=== PATIENT | male | born 1945 | race Caucasian/White ===

== ENCOUNTER 2020-08-10 10:34 | Inpatient (IN) ==
[2020-08-10] MEDS ORDERED: Dexamethasone 4 MG/ML VIAL IVP ONE (11:23)
[2020-08-10 11:30] LABS: Basophils % 0.1 %; Hematocrit 45.3 % (37.5-50.1); Hemoglobin 15.7 g/dL (12.9-16.9); Immature Granulocytes % 0.9 % (0-4); Lymphocytes # 0.4 K/mcL (0.6-4.6); Lymphocytes % 3.2 %; Mean Corpuscular HGB Conc 34.7 g/dL (31.6-35.5); Mean Corpuscular Hemoglobin 30.5 pg (28.0-33.3); Mean Corpuscular Volume 88.1 fL (83.0-100.0); Mean Platelet Volume 10.1 fL (9.4-12.4); Monocytes # 0.6 K/mcL (0.0-1.3); Monocytes % 4.3 %; Neutrophils # 12.7 K/mcL (1.6-8.9); Platelet Count 170 K/mcL (140-400); Red Blood Count 5.14 M/mcL (4.19-5.50); Red Cell Distribution Width 11.9 % (11.5-14.5); Segmented Neutrophils % 91.5 %; White Blood Count 13.9 K/mcL (4.3-11.1)
[2020-08-10 11:45] LABS: INR 1.2; Prothrombin Time 13.8 Seconds (9.4-12.1)
[2020-08-10 11:49] LABS: BUN/Creatinine Ratio 32 (6-26); Blood Urea Nitrogen 28 mg/dL (8-23); Calcium 8.9 mg/dL (8.6-10.3); Carbon Dioxide 25 mEq/L (23-29); Chloride 97 mEq/L (98-107); Glucose 120 mg/dL (70-105); Osmolality,Calculated 279 (280-300); Potassium 3.7 mEq/L (3.5-5.1); Sodium 131 mEq/L (136-145); Troponin I 0.03 ng/mL (< 0.04); eGFR For African Americans > 60 (> 60); eGFR For Non-African Americans > 60 (> 60)
[2020-08-10 11:55] LABS: Activated Partial Thrombo Time 20.6 Seconds (26.0-36.0)
[2020-08-10] MEDS ORDERED: Isovue-370 500 ML BOTTLE IVP ONE (11:58)
[2020-08-10] MEDS ORDERED: Prochlorperazine 10 MG/2 ML VIAL IVP ONE (12:06)
[2020-08-10] MEDS ORDERED: cefTRIAXone 1,000 MG in Water for inj. (sterile) 10 ML IVP ONE (12:57)
[2020-08-10] MEDS ORDERED: Naloxone 0.4 MG/ML INJ IVP PRN (13:44)
[2020-08-10] MEDS ORDERED: Ipratropium 1 PUFF INHALER IH PRN (14:02)
[2020-08-10 15:32] LABS: Bilirubin,Urine Negative (Negative); Blood,Urine Trace (Negative); Clarity,Urine Clear (Clear); Color,Urine Yellow (Yellow); Glucose,Urine (UA) Normal (Normal); Ketones,Urine Negative (Negative); Leukocyte Esterase,Urine Negative (Negative); Mucus,Urine Few per lpf (None-Few); Nitrite,Urine Negative (Negative); Protein,Urine 50 mg/dL (Neg-Trace); RBC,Urine 0-3 per hpf (0-3); Specific Gravity,Urine > 1.030 (1.010-1.025); Squamous Epithelial Cell,Urine Few per hpf (None-Few); Urobilinogen,Urine Normal (Normal); WBC,Urine 0-3 per hpf (0-3)
[2020-08-10] MEDS ORDERED: *HR* OxyCODONE/APAP 5/325 TABLET PO PRN (16:10)
[2020-08-10] MEDS ORDERED: traZODone 50 MG TABLET PO PRN (20:13)
[2020-08-10] MEDS ORDERED: polyethylene glycoL 3350 17 GM POWD.PACK PO PRN (20:13)
[2020-08-10] MEDS ORDERED: *HR* OxyCODONE/APAP 10/325 TABLET PO PRN (21:53)
[2020-08-10] MEDS: Triamcinolone Acet 0.1% CRM 15 GM TUBE TP SCH (22:03)
[2020-08-11 01:26] LABS: Basophils % 0.1 %; Hematocrit 45.2 % (37.5-50.1); Hemoglobin 15.1 g/dL (12.9-16.9); Immature Granulocytes % 0.9 % (0-4); Lymphocytes # 0.4 K/mcL (0.6-4.6); Lymphocytes % 2.9 %; Mean Corpuscular HGB Conc 33.4 g/dL (31.6-35.5); Mean Corpuscular Hemoglobin 30.6 pg (28.0-33.3); Mean Corpuscular Volume 91.7 fL (83.0-100.0); Mean Platelet Volume 9.9 fL (9.4-12.4); Monocytes # 0.4 K/mcL (0.0-1.3); Monocytes % 3.1 %; Neutrophils # 13.2 K/mcL (1.6-8.9); Platelet Count 162 K/mcL (140-400); Red Blood Count 4.93 M/mcL (4.19-5.50); Red Cell Distribution Width 12.1 % (11.5-14.5); White Blood Count 14.2 K/mcL (4.3-11.1)
[2020-08-11] MEDS: *HR* OxyCODONE/APAP 10/325 TABLET PO PRN ×4 (01:31→22:30)
[2020-08-11 01:42] LABS: BUN/Creatinine Ratio 34 (6-26); Blood Urea Nitrogen 34 mg/dL (8-23); Calcium 8.9 mg/dL (8.6-10.3); Carbon Dioxide 30 mEq/L (23-29); Chloride 95 mEq/L (98-107); Glucose 163 mg/dL (70-105); Osmolality,Calculated 285 (280-300); Potassium 4.6 mEq/L (3.5-5.1); Sodium 132 mEq/L (136-145); eGFR For African Americans > 60 (> 60); eGFR For Non-African Americans > 60 (> 60)
[2020-08-11] MEDS: *HR* Enoxaparin 40 MG/0.4 ML SYRINGE SQ SCH (06:56)
[2020-08-11] MEDS: Dexamethasone 4 MG/ML VIAL IVP SCH (08:19)
[2020-08-11] MEDS: Aspirin Enteric Coated 81 MG Tablet PO SCH (08:19)
[2020-08-11] MEDS: lisinopriL 20 MG TABLET PO SCH (08:20)
[2020-08-11] MEDS: DilTIAZem CD (24hr) 180 MG CAP.ER.24H PO SCH (08:20)
[2020-08-11] MEDS: Triamcinolone Acet 0.1% CRM 15 GM TUBE TP SCH ×2 (08:24→21:09)
[2020-08-11] MEDS ORDERED: Cyanocobalamin (B-12) 1,000 MCG TABLET PO SCH (09:00)
[2020-08-11] MEDS ORDERED: cefTRIAXone 2,000 MG in Water for inj. (sterile) 20 ML IVP SCH (14:00)
[2020-08-11] MEDS: Acetaminophen 325 MG TABLET PO PRN (23:42)
[2020-08-12] MEDS: *HR* OxyCODONE Immed Rel 5 MG TABLET PO PRN ×3 (04:35→18:46)
[2020-08-12] MEDS: *HR* Enoxaparin 40 MG/0.4 ML SYRINGE SQ SCH (05:27)
[2020-08-12 08:21] LABS: Basophils % 0.1 %; Hematocrit 42.5 % (37.5-50.1); Hemoglobin 14.9 g/dL (12.9-16.9); Immature Granulocytes % 0.7 % (0-4); Lymphocytes # 0.4 K/mcL (0.6-4.6); Lymphocytes % 2.9 %; Mean Corpuscular HGB Conc 35.1 g/dL (31.6-35.5); Mean Corpuscular Hemoglobin 31.6 pg (28.0-33.3); Mean Corpuscular Volume 90.2 fL (83.0-100.0); Monocytes # 0.4 K/mcL (0.0-1.3); Monocytes % 2.7 %; Neutrophils # 14.1 K/mcL (1.6-8.9); Platelet Count 188 K/mcL (140-400); Red Blood Count 4.71 M/mcL (4.19-5.50); Segmented Neutrophils % 93.6 %
[2020-08-12] MEDS: DilTIAZem CD (24hr) 180 MG CAP.ER.24H PO SCH (08:45)
[2020-08-12] MEDS: Aspirin Enteric Coated 81 MG Tablet PO SCH (08:46)
[2020-08-12] MEDS: Acetaminophen 325 MG TABLET PO PRN ×2 (08:46→23:58)
[2020-08-12] MEDS: lisinopriL 20 MG TABLET PO SCH (08:46)
[2020-08-12] MEDS: Dexamethasone 4 MG/ML VIAL IVP SCH (08:48)
[2020-08-12] MEDS: Triamcinolone Acet 0.1% CRM 15 GM TUBE TP SCH ×2 (08:49→19:09)
[2020-08-12] MEDS: Cyanocobalamin (B-12) 1,000 MCG TABLET PO SCH (08:56)
[2020-08-12 09:05] LABS: INR 1.2
[2020-08-12 09:53] LABS: BUN/Creatinine Ratio 37 (6-26); Blood Urea Nitrogen 34 mg/dL (8-23); C-Reactive Protein 172 mg/L (Less than 10); Calcium 8.9 mg/dL (8.6-10.3); Carbon Dioxide 31 mEq/L (23-29); Chloride 94 mEq/L (98-107); Glucose 144 mg/dL (70-105); Osmolality,Calculated 282 (280-300); Potassium 4.5 mEq/L (3.5-5.1); Sodium 131 mEq/L (136-145); eGFR For African Americans > 60 (> 60); eGFR For Non-African Americans > 60 (> 60)
[2020-08-12] MEDS ORDERED: Benzonatate 100 MG CAPSULE PO PRN (10:09)
[2020-08-12] MEDS: levoFLOXacin 750 MG/150 ML 750 MG/150 ML BAG IVPB SCH (12:23)
[2020-08-12] MEDS: Furosemide 20 MG/2 ML VIAL IVP SCH (12:23)
[2020-08-12] MEDS: Ipratropium 1 PUFF INHALER IH SCH ×4 (12:50→23:06)
[2020-08-12 18:41] LABS: Adenovirus Not Detected (Not Detect); Bordetella Pertussis Not Detected (Not Detect); Chlamydophila pneumoniae Not Detected (Not Detect); Coronavirus 229E Not Detected (Not Detect); Coronavirus HKU1 Not Detected (Not Detect); Coronavirus NL63 Not Detected (Not Detect); Coronavirus OC43 Not Detected (Not Detect); Human Metapneumovirus Not Detected (Not Detect); Human Rhinovirus/Enterovirus Not Detected (Not Detect); Influenza A Subtype 2009 H1 Not Detected (Not Detect); Influenza B Not Detected (Not Detect); Mycoplasma pneumoniae Not Detected (Not Detect); Parainfluenza Virus 1 Not Detected (Not Detect); Parainfluenza Virus 2 Not Detected (Not Detect); Parainfluenza Virus 3 Not Detected (Not Detect); Parainfluenza Virus 4 Not Detected (Not Detect); Respiratory Syncytial Virus Not Detected (Not Detect)
[2020-08-13] MEDS: *HR* OxyCODONE Immed Rel 5 MG TABLET PO PRN ×3 (02:35→20:49)
[2020-08-13] MEDS: Ipratropium 1 PUFF INHALER IH SCH ×6 (04:06→23:54)
[2020-08-13] MEDS: *HR* Enoxaparin 40 MG/0.4 ML SYRINGE SQ SCH (04:53)
[2020-08-13 05:25] LABS: Basophils % 0.1 %; Hematocrit 39.2 % (37.5-50.1); Hemoglobin 13.5 g/dL (12.9-16.9); Immature Granulocytes % 0.7 % (0-4); Lymphocytes # 0.5 K/mcL (0.6-4.6); Lymphocytes % 3.2 %; Mean Corpuscular HGB Conc 34.4 g/dL (31.6-35.5); Mean Corpuscular Hemoglobin 30.5 pg (28.0-33.3); Mean Corpuscular Volume 88.7 fL (83.0-100.0); Monocytes # 0.5 K/mcL (0.0-1.3); Monocytes % 3.1 %; Neutrophils # 13.4 K/mcL (1.6-8.9); Platelet Count 185 K/mcL (140-400); Red Blood Count 4.42 M/mcL (4.19-5.50); Red Cell Distribution Width 12.2 % (11.5-14.5); Segmented Neutrophils % 92.9 %; White Blood Count 14.4 K/mcL (4.3-11.1)
[2020-08-13 05:42] LABS: BUN/Creatinine Ratio 42 (6-26); Blood Urea Nitrogen 35 mg/dL (8-23); Calcium 8.8 mg/dL (8.6-10.3); Carbon Dioxide 27 mEq/L (23-29); Chloride 95 mEq/L (98-107); Glucose 176 mg/dL (70-105); Osmolality,Calculated 278 (280-300); Potassium 4.5 mEq/L (3.5-5.1); Sodium 128 mEq/L (136-145); eGFR For African Americans > 60 (> 60); eGFR For Non-African Americans > 60 (> 60)
[2020-08-13] MEDS: Dexamethasone 4 MG/ML VIAL IVP SCH (09:36)
[2020-08-13] MEDS: DilTIAZem CD (24hr) 180 MG CAP.ER.24H PO SCH (09:36)
[2020-08-13] MEDS: Aspirin Enteric Coated 81 MG Tablet PO SCH (09:36)
[2020-08-13] MEDS: Furosemide 20 MG/2 ML VIAL IVP SCH (09:37)
[2020-08-13] MEDS: Triamcinolone Acet 0.1% CRM 15 GM TUBE TP SCH ×2 (09:37→21:13)
[2020-08-13] MEDS: levoFLOXacin 750 MG/150 ML 750 MG/150 ML BAG IVPB SCH (09:37)
[2020-08-13] MEDS: lisinopriL 20 MG TABLET PO SCH (09:38)
[2020-08-13] MEDS: Cyanocobalamin (B-12) 1,000 MCG TABLET PO SCH (09:38)
[2020-08-13] MEDS ORDERED: Dexamethasone 4 MG/ML VIAL IVP ONE (13:49)
[2020-08-14 02:48] LABS: Basophils % 0.1 %; Hemoglobin 13.3 g/dL (12.9-16.9); Lymphocytes # 0.3 K/mcL (0.6-4.6); Lymphocytes % 2.3 %; Mean Corpuscular HGB Conc 34.1 g/dL (31.6-35.5); Mean Corpuscular Hemoglobin 30.6 pg (28.0-33.3); Mean Corpuscular Volume 89.7 fL (83.0-100.0); Mean Platelet Volume 9.8 fL (9.4-12.4); Monocytes # 0.3 K/mcL (0.0-1.3); Monocytes % 2.3 %; Neutrophils # 13.3 K/mcL (1.6-8.9); Platelet Count 212 K/mcL (140-400); Red Blood Count 4.35 M/mcL (4.19-5.50); Red Cell Distribution Width 12.3 % (11.5-14.5); Segmented Neutrophils % 94.3 %; White Blood Count 14.1 K/mcL (4.3-11.1)
[2020-08-14] MEDS: *HR* OxyCODONE Immed Rel 5 MG TABLET PO PRN ×3 (02:51→18:35)
[2020-08-14 03:08] LABS: BUN/Creatinine Ratio 42 (6-26); Blood Urea Nitrogen 37 mg/dL (8-23); Carbon Dioxide 29 mEq/L (23-29); Chloride 95 mEq/L (98-107); Glucose 181 mg/dL (70-105); Osmolality,Calculated 291 (280-300); Potassium 4.4 mEq/L (3.5-5.1); Sodium 134 mEq/L (136-145); eGFR For African Americans > 60 (> 60); eGFR For Non-African Americans > 60 (> 60)
[2020-08-14] MEDS: Ipratropium 1 PUFF INHALER IH SCH ×5 (04:08→20:10)
[2020-08-14] MEDS: *HR* Enoxaparin 40 MG/0.4 ML SYRINGE SQ SCH (05:15)
[2020-08-14] MEDS ORDERED: Dexamethasone 4 MG/ML VIAL IVP SCH (09:00)
[2020-08-14] MEDS: Furosemide 20 MG/2 ML VIAL IVP SCH (09:51)
[2020-08-14] MEDS: Cyanocobalamin (B-12) 1,000 MCG TABLET PO SCH (09:51)
[2020-08-14] MEDS: Aspirin Enteric Coated 81 MG Tablet PO SCH (09:51)
[2020-08-14] MEDS: lisinopriL 20 MG TABLET PO SCH (09:52)
[2020-08-14] MEDS: DilTIAZem CD (24hr) 180 MG CAP.ER.24H PO SCH (09:52)
[2020-08-14] MEDS: levoFLOXacin 750 MG/150 ML 750 MG/150 ML BAG IVPB SCH (09:53)
[2020-08-14] MEDS: Triamcinolone Acet 0.1% CRM 15 GM TUBE TP SCH (09:54)
[2020-08-14] MEDS ORDERED: Sucralfate 1 GM TABLET PO PRN (16:16)
[2020-08-14] MEDS: Pantoprazole 40 MG VIAL IVP SCH (17:08)
[2020-08-14] MEDS ORDERED: *HR* LORazepam 2 MG/ML VIAL IVP ONE (18:55)
[2020-08-14] MEDS ORDERED: Isovue-370 500 ML BOTTLE IVP ONE (18:58)
[2020-08-14] MEDS ORDERED: Furosemide 20 MG/2 ML VIAL IVP ONE (19:12)
[2020-08-14] MEDS ORDERED: Haloperidol Lactate 5 MG/ML VIAL IM ONE (23:20)
[2020-08-14] MEDS: Dexmedetomidine HCl 400 MCG/100 ML MLS IVC SCH (23:51)
[2020-08-15] MEDS: Ipratropium 1 PUFF INHALER IH SCH ×8 (00:23→23:10)
[2020-08-15] MEDS: Triamcinolone Acet 0.1% CRM 15 GM TUBE TP SCH ×4 (00:35→21:57)
[2020-08-15 02:50] LABS: Basophils % 0.2 %; Hematocrit 35.9 % (37.5-50.1); Hemoglobin 12.4 g/dL (12.9-16.9); Lymphocytes # 0.3 K/mcL (0.6-4.6); Lymphocytes % 1.6 %; Mean Corpuscular HGB Conc 34.5 g/dL (31.6-35.5); Mean Corpuscular Hemoglobin 31.2 pg (28.0-33.3); Mean Corpuscular Volume 90.4 fL (83.0-100.0); Monocytes # 0.5 K/mcL (0.0-1.3); Monocytes % 2.8 %; Neutrophils # 16.2 K/mcL (1.6-8.9); Platelet Count 231 K/mcL (140-400); Red Blood Count 3.97 M/mcL (4.19-5.50); Red Cell Distribution Width 12.4 % (11.5-14.5); Segmented Neutrophils % 94.4 %; White Blood Count 17.2 K/mcL (4.3-11.1)
[2020-08-15 03:08] LABS: BUN/Creatinine Ratio 40 (6-26); Blood Urea Nitrogen 41 mg/dL (8-23); Calcium 8.8 mg/dL (8.6-10.3); Carbon Dioxide 25 mEq/L (23-29); Chloride 97 mEq/L (98-107); Glucose 190 mg/dL (70-105); Osmolality,Calculated 289 (280-300); Sodium 132 mEq/L (136-145); eGFR For African Americans > 60 (> 60); eGFR For Non-African Americans > 60 (> 60)
[2020-08-15] MEDS: Dexmedetomidine HCl 400 MCG/100 ML MLS IVC SCH ×2 (05:08→18:28)
[2020-08-15] MEDS: *HR* Enoxaparin 40 MG/0.4 ML SYRINGE SQ SCH (06:45)
[2020-08-15] MEDS ORDERED: Furosemide 20 MG/2 ML VIAL IVP SCH (09:00)
[2020-08-15] MEDS ORDERED: DEXAMETHASONE 6 MG PO SCH (09:00)
[2020-08-15] MEDS: Cyanocobalamin (B-12) 1,000 MCG TABLET PO SCH (09:49)
[2020-08-15] MEDS: Dexamethasone Sodium Phos/PF 10 MG/ML VIAL IVP SCH (09:49)
[2020-08-15] MEDS: lisinopriL 20 MG TABLET PO SCH (09:49)
[2020-08-15] MEDS: DilTIAZem CD (24hr) 180 MG CAP.ER.24H PO SCH (09:49)
[2020-08-15] MEDS: Aspirin Enteric Coated 81 MG Tablet PO SCH (09:49)
[2020-08-15] MEDS: Pantoprazole 40 MG VIAL IVP SCH (09:49)
[2020-08-15] MEDS: Furosemide 40 MG/4 ML VIAL IVP SCH (09:50)
[2020-08-15] MEDS: levoFLOXacin 750 MG/150 ML 750 MG/150 ML BAG IVPB SCH (09:50)
[2020-08-15] MEDS: *HR* OxyCODONE Immed Rel 5 MG TABLET PO PRN ×2 (16:16→23:57)
[2020-08-16] MEDS: Ipratropium 1 PUFF INHALER IH SCH ×5 (04:02→20:05)
[2020-08-16] MEDS: *HR* Enoxaparin 40 MG/0.4 ML SYRINGE SQ SCH (05:52)
[2020-08-16] MEDS: Furosemide 40 MG/4 ML VIAL IVP SCH (08:38)
[2020-08-16] MEDS: levoFLOXacin 750 MG/150 ML 750 MG/150 ML BAG IVPB SCH (08:39)
[2020-08-16] MEDS: DilTIAZem CD (24hr) 180 MG CAP.ER.24H PO SCH (08:40)
[2020-08-16] MEDS: Dexamethasone Sodium Phos/PF 10 MG/ML VIAL IVP SCH (08:40)
[2020-08-16] MEDS: Aspirin Enteric Coated 81 MG Tablet PO SCH (08:40)
[2020-08-16] MEDS: Cyanocobalamin (B-12) 1,000 MCG TABLET PO SCH (08:40)
[2020-08-16] MEDS: Pantoprazole 40 MG VIAL IVP SCH (08:41)
[2020-08-16] MEDS: Triamcinolone Acet 0.1% CRM 15 GM TUBE TP SCH (08:41)
[2020-08-16 08:59] LABS: Basophils % 0.1 %; Hematocrit 37.3 % (37.5-50.1); Hemoglobin 12.7 g/dL (12.9-16.9); Immature Granulocytes % 0.8 % (0-4); Lymphocytes # 0.7 K/mcL (0.6-4.6); Lymphocytes % 3.8 %; Mean Corpuscular Hemoglobin 31.1 pg (28.0-33.3); Mean Corpuscular Volume 91.2 fL (83.0-100.0); Mean Platelet Volume 9.8 fL (9.4-12.4); Monocytes # 0.3 K/mcL (0.0-1.3); Monocytes % 1.5 %; Neutrophils # 15.8 K/mcL (1.6-8.9); Platelet Count 237 K/mcL (140-400); Red Blood Count 4.09 M/mcL (4.19-5.50); Red Cell Distribution Width 12.2 % (11.5-14.5); Segmented Neutrophils % 93.8 %; White Blood Count 16.9 K/mcL (4.3-11.1)
[2020-08-16 09:19] LABS: BUN/Creatinine Ratio 51 (6-26); Blood Urea Nitrogen 50 mg/dL (8-23); Calcium 8.5 mg/dL (8.6-10.3); Carbon Dioxide 27 mEq/L (23-29); Chloride 98 mEq/L (98-107); Glucose 159 mg/dL (70-105); Osmolality,Calculated 291 (280-300); Potassium 3.9 mEq/L (3.5-5.1); Sodium 132 mEq/L (136-145); eGFR For African Americans > 60 (> 60); eGFR For Non-African Americans > 60 (> 60)
[2020-08-16] MEDS: lisinopriL 20 MG TABLET PO SCH (10:30)
[2020-08-16] MEDS: *HR* OxyCODONE Immed Rel 5 MG TABLET PO PRN (14:27)
[2020-08-16] MEDS: Dexmedetomidine HCl 400 MCG/100 ML MLS IVC SCH (17:04)
[2020-08-16] MEDS ORDERED: polyethylene glycoL 3350 17 GM POWD.PACK PO PRN (23:53)
[2020-08-16] MEDS ORDERED: *HR* OxyCODONE Immed Rel 5 MG TABLET PO PRN (23:53)
[2020-08-16] MEDS ORDERED: Benzonatate 100 MG CAPSULE PO PRN (23:53)
[2020-08-16] MEDS ORDERED: Naloxone 0.4 MG/ML INJ IVP PRN (23:53)
[2020-08-16] MEDS ORDERED: Acetaminophen 325 MG TABLET PO PRN (23:53)
[2020-08-16] MEDS ORDERED: Sucralfate 1 GM TABLET PO PRN (23:53)
[2020-08-17] MEDS: Ipratropium 1 PUFF INHALER IH SCH ×7 (00:02→23:54)
[2020-08-17] MEDS: *HR* Enoxaparin 40 MG/0.4 ML SYRINGE SQ SCH (06:11)
[2020-08-17] MEDS: Pantoprazole 40 MG VIAL IVP SCH (06:12)
[2020-08-17] MEDS: Dexmedetomidine HCl 400 MCG/100 ML MLS IVC SCH ×2 (07:27→07:28)
[2020-08-17] MEDS: Triamcinolone Acet 0.1% CRM 15 GM TUBE TP SCH ×2 (07:28→09:21)
[2020-08-17 08:39] LABS: Basophils % 0.1 %; Hematocrit 38.7 % (37.5-50.1); Hemoglobin 13.1 g/dL (12.9-16.9); Immature Granulocytes % 0.6 % (0-4); Lymphocytes # 0.3 K/mcL (0.6-4.6); Lymphocytes % 1.9 %; Mean Corpuscular HGB Conc 33.9 g/dL (31.6-35.5); Mean Corpuscular Hemoglobin 30.8 pg (28.0-33.3); Mean Corpuscular Volume 90.8 fL (83.0-100.0); Mean Platelet Volume 9.5 fL (9.4-12.4); Monocytes # 0.2 K/mcL (0.0-1.3); Monocytes % 1.4 %; Neutrophils # 15.5 K/mcL (1.6-8.9); Platelet Count 227 K/mcL (140-400); Red Blood Count 4.26 M/mcL (4.19-5.50); Red Cell Distribution Width 12.1 % (11.5-14.5); White Blood Count 16.2 K/mcL (4.3-11.1)
[2020-08-17 08:52] LABS: BUN/Creatinine Ratio 49 (6-26); Blood Urea Nitrogen 42 mg/dL (8-23); Calcium 8.4 mg/dL (8.6-10.3); Carbon Dioxide 29 mEq/L (23-29); Chloride 99 mEq/L (98-107); Glucose 123 mg/dL (70-105); Osmolality,Calculated 292 (280-300); Potassium 3.9 mEq/L (3.5-5.1); Sodium 135 mEq/L (136-145); eGFR For African Americans > 60 (> 60); eGFR For Non-African Americans > 60 (> 60)
[2020-08-17] MEDS: lisinopriL 20 MG TABLET PO SCH (09:19)
[2020-08-17] MEDS: Cyanocobalamin (B-12) 1,000 MCG TABLET PO SCH (09:19)
[2020-08-17] MEDS: Furosemide 40 MG/4 ML VIAL IVP SCH (09:19)
[2020-08-17] MEDS: DilTIAZem CD (24hr) 180 MG CAP.ER.24H PO SCH (09:19)
[2020-08-17] MEDS: Dexamethasone Sodium Phos/PF 10 MG/ML VIAL IVP SCH (09:19)
[2020-08-17] MEDS: Aspirin Enteric Coated 81 MG Tablet PO SCH (09:19)
[2020-08-17] MEDS: levoFLOXacin 750 MG/150 ML 750 MG/150 ML BAG IVPB SCH (09:20)
[2020-08-17] MEDS: traZODone 50 MG TABLET PO PRN (21:40)
[2020-08-18 02:01] LABS: Basophils % 0.1 %; Hematocrit 38.5 % (37.5-50.1); Hemoglobin 12.9 g/dL (12.9-16.9); Immature Granulocytes % 0.8 % (0-4); Lymphocytes # 0.2 K/mcL (0.6-4.6); Lymphocytes % 1.4 %; Mean Corpuscular HGB Conc 33.5 g/dL (31.6-35.5); Mean Corpuscular Hemoglobin 30.4 pg (28.0-33.3); Mean Corpuscular Volume 90.8 fL (83.0-100.0); Mean Platelet Volume 9.7 fL (9.4-12.4); Monocytes # 0.2 K/mcL (0.0-1.3); Monocytes % 1.1 %; Neutrophils # 15.7 K/mcL (1.6-8.9); Platelet Count 251 K/mcL (140-400); Red Blood Count 4.24 M/mcL (4.19-5.50); Red Cell Distribution Width 12.1 % (11.5-14.5); Segmented Neutrophils % 96.6 %; White Blood Count 16.2 K/mcL (4.3-11.1)
[2020-08-18 02:25] LABS: BUN/Creatinine Ratio 53 (6-26); Blood Urea Nitrogen 54 mg/dL (8-23); Calcium 8.4 mg/dL (8.6-10.3); Carbon Dioxide 27 mEq/L (23-29); Chloride 101 mEq/L (98-107); Glucose 160 mg/dL (70-105); Osmolality,Calculated 300 (280-300); Potassium 4.1 mEq/L (3.5-5.1); Sodium 136 mEq/L (136-145); eGFR For African Americans > 60 (> 60); eGFR For Non-African Americans > 60 (> 60)
[2020-08-18] MEDS: Ipratropium 1 PUFF INHALER IH SCH ×6 (03:46→23:27)
[2020-08-18] MEDS: Triamcinolone Acet 0.1% CRM 15 GM TUBE TP SCH ×3 (06:29→20:58)
[2020-08-18] MEDS: Pantoprazole 40 MG VIAL IVP SCH (06:32)
[2020-08-18] MEDS: *HR* Enoxaparin 40 MG/0.4 ML SYRINGE SQ SCH (06:33)
[2020-08-18] MEDS: Dexmedetomidine HCl 400 MCG/100 ML MLS IVC SCH (08:11)
[2020-08-18] MEDS: Dexamethasone Sodium Phos/PF 10 MG/ML VIAL IVP SCH (09:53)
[2020-08-18] MEDS: Furosemide 40 MG/4 ML VIAL IVP SCH (09:53)
[2020-08-18] MEDS: Cyanocobalamin (B-12) 1,000 MCG TABLET PO SCH (09:54)
[2020-08-18] MEDS: levoFLOXacin 750 MG/150 ML 750 MG/150 ML BAG IVPB SCH (09:54)
[2020-08-18] MEDS: Aspirin Enteric Coated 81 MG Tablet PO SCH (09:54)
[2020-08-18] MEDS: lisinopriL 20 MG TABLET PO SCH (09:54)
[2020-08-18] MEDS: DilTIAZem CD (24hr) 180 MG CAP.ER.24H PO SCH (09:54)
[2020-08-18] MEDS: traZODone 50 MG TABLET PO PRN (22:38)
[2020-08-19 00:59] LABS: Basophils % 0.1 %; Hematocrit 40.6 % (37.5-50.1); Hemoglobin 13.8 g/dL (12.9-16.9); Immature Granulocytes % 0.5 % (0-4); Lymphocytes # 0.2 K/mcL (0.6-4.6); Lymphocytes % 1.6 %; Mean Corpuscular Hemoglobin 31.7 pg (28.0-33.3); Mean Corpuscular Volume 93.1 fL (83.0-100.0); Mean Platelet Volume 10.7 fL (9.4-12.4); Monocytes # 0.2 K/mcL (0.0-1.3); Monocytes % 1.2 %; Platelet Count 243 K/mcL (140-400); Red Blood Count 4.36 M/mcL (4.19-5.50); Red Cell Distribution Width 12.4 % (11.5-14.5); Segmented Neutrophils % 96.6 %; White Blood Count 14.5 K/mcL (4.3-11.1)
[2020-08-19 01:18] LABS: BUN/Creatinine Ratio 60 (6-26); Blood Urea Nitrogen 64 mg/dL (8-23); Carbon Dioxide 28 mEq/L (23-29); Chloride 102 mEq/L (98-107); Glucose 189 mg/dL (70-105); Osmolality,Calculated 313 (280-300); Potassium 3.9 mEq/L (3.5-5.1); Sodium 140 mEq/L (136-145); eGFR For African Americans > 60 (> 60); eGFR For Non-African Americans > 60 (> 60)
[2020-08-19] MEDS: Ipratropium 1 PUFF INHALER IH SCH ×5 (03:42→19:53)
[2020-08-19] MEDS: Pantoprazole 40 MG VIAL IVP SCH (05:19)
[2020-08-19] MEDS: *HR* Enoxaparin 40 MG/0.4 ML SYRINGE SQ SCH (05:19)
[2020-08-19] MEDS: Dexamethasone Sodium Phos/PF 10 MG/ML VIAL IVP SCH (08:40)
[2020-08-19] MEDS: Cyanocobalamin (B-12) 1,000 MCG TABLET PO SCH (08:40)
[2020-08-19] MEDS: Aspirin Enteric Coated 81 MG Tablet PO SCH (08:40)
[2020-08-19] MEDS: levoFLOXacin 750 MG/150 ML 750 MG/150 ML BAG IVPB SCH (08:41)
[2020-08-19] MEDS: Furosemide 40 MG/4 ML VIAL IVP SCH (08:41)
[2020-08-19] MEDS: DilTIAZem CD (24hr) 180 MG CAP.ER.24H PO SCH (08:41)
[2020-08-19] MEDS: lisinopriL 20 MG TABLET PO SCH (08:41)
[2020-08-19] MEDS: Triamcinolone Acet 0.1% CRM 15 GM TUBE TP SCH ×2 (09:51→21:06)
[2020-08-20] MEDS: Ipratropium 1 PUFF INHALER IH SCH ×7 (00:20→23:09)
[2020-08-20 01:59] LABS: Basophils % 0.1 %; Hematocrit 42.1 % (37.5-50.1); Hemoglobin 13.7 g/dL (12.9-16.9); Immature Granulocytes % 0.7 % (0-4); Lymphocytes # 0.4 K/mcL (0.6-4.6); Lymphocytes % 2.1 %; Mean Corpuscular HGB Conc 32.5 g/dL (31.6-35.5); Mean Corpuscular Hemoglobin 30.4 pg (28.0-33.3); Mean Corpuscular Volume 93.6 fL (83.0-100.0); Mean Platelet Volume 9.8 fL (9.4-12.4); Monocytes # 0.2 K/mcL (0.0-1.3); Monocytes % 1.1 %; Neutrophils # 18.4 K/mcL (1.6-8.9); Platelet Count 282 K/mcL (140-400); Red Cell Distribution Width 12.5 % (11.5-14.5); White Blood Count 19.2 K/mcL (4.3-11.1)
[2020-08-20 02:19] LABS: Calcium 9.2 mg/dL (8.6-10.3); Potassium 4.2 mEq/L (3.5-5.1)
[2020-08-20] MEDS: Pantoprazole 40 MG VIAL IVP SCH (06:13)
[2020-08-20] MEDS: *HR* Enoxaparin 40 MG/0.4 ML SYRINGE SQ SCH (06:13)
[2020-08-20] MEDS: Dexamethasone Sodium Phos/PF 10 MG/ML VIAL IVP SCH (09:20)
[2020-08-20] MEDS: Cyanocobalamin (B-12) 1,000 MCG TABLET PO SCH (09:20)
[2020-08-20] MEDS: Aspirin Enteric Coated 81 MG Tablet PO SCH (09:20)
[2020-08-20] MEDS: DilTIAZem CD (24hr) 180 MG CAP.ER.24H PO SCH (09:21)
[2020-08-20] MEDS: Triamcinolone Acet 0.1% CRM 15 GM TUBE TP SCH ×2 (11:28→22:04)
[2020-08-20] MEDS: traZODone 50 MG TABLET PO PRN (20:53)
[2020-08-21] MEDS: Ipratropium 1 PUFF INHALER IH SCH ×6 (03:30→23:34)
[2020-08-21] MEDS: Pantoprazole 40 MG VIAL IVP SCH (06:01)
[2020-08-21] MEDS: *HR* Enoxaparin 40 MG/0.4 ML SYRINGE SQ SCH (06:01)
[2020-08-21 07:12] LABS: Hematocrit 39.4 % (37.5-50.1); Hemoglobin 13.3 g/dL (12.9-16.9); Mean Corpuscular HGB Conc 33.8 g/dL (31.6-35.5); Mean Corpuscular Hemoglobin 31.1 pg (28.0-33.3); Mean Corpuscular Volume 92.1 fL (83.0-100.0); Platelet Count 244 K/mcL (140-400); Red Blood Count 4.28 M/mcL (4.19-5.50); Red Cell Distribution Width 12.4 % (11.5-14.5); White Blood Count 18.3 K/mcL (4.3-11.1)
[2020-08-21] MEDS: Dexamethasone Sodium Phos/PF 10 MG/ML VIAL IVP SCH (08:03)
[2020-08-21] MEDS: Aspirin Enteric Coated 81 MG Tablet PO SCH (08:04)
[2020-08-21] MEDS: DilTIAZem CD (24hr) 180 MG CAP.ER.24H PO SCH (08:04)
[2020-08-21] MEDS: Cyanocobalamin (B-12) 1,000 MCG TABLET PO SCH (08:04)
[2020-08-21 08:07] LABS: Calcium 8.6 mg/dL (8.6-10.3); Potassium 3.8 mEq/L (3.5-5.1)
[2020-08-21] MEDS: Triamcinolone Acet 0.1% CRM 15 GM TUBE TP SCH ×2 (13:48→22:11)
[2020-08-21] MEDS: traZODone 50 MG TABLET PO PRN (21:30)
[2020-08-21] MEDS: Melatonin 3 MG TABLET PO PRN (21:30)
[2020-08-21] MEDS: Nystatin SUSP 5 ML UD.LIQ PO SCH (22:04)
[2020-08-22 01:50] LABS: Hematocrit 35.5 % (37.5-50.1); Hemoglobin 12.2 g/dL (12.9-16.9); Mean Corpuscular HGB Conc 34.4 g/dL (31.6-35.5); Mean Corpuscular Hemoglobin 31.4 pg (28.0-33.3); Mean Corpuscular Volume 91.5 fL (83.0-100.0); Mean Platelet Volume 10.1 fL (9.4-12.4); Platelet Count 191 K/mcL (140-400); Red Blood Count 3.88 M/mcL (4.19-5.50); Red Cell Distribution Width 12.2 % (11.5-14.5); White Blood Count 13.2 K/mcL (4.3-11.1)
[2020-08-22 02:12] LABS: BUN/Creatinine Ratio 60 (6-26); Blood Urea Nitrogen 74 mg/dL (8-23); Calcium 8.2 mg/dL (8.6-10.3); Carbon Dioxide 26 mEq/L (23-29); Chloride 103 mEq/L (98-107); Glucose 177 mg/dL (70-105); Osmolality,Calculated 308 (280-300); Potassium 3.9 mEq/L (3.5-5.1); Sodium 136 mEq/L (136-145); eGFR For African Americans > 60 (> 60); eGFR For Non-African Americans 57 (> 60)
[2020-08-22] MEDS: Ipratropium 1 PUFF INHALER IH SCH ×5 (03:26→19:39)
[2020-08-22] MEDS: *HR* Enoxaparin 40 MG/0.4 ML SYRINGE SQ SCH (05:11)
[2020-08-22] MEDS: Pantoprazole 40 MG VIAL IVP SCH (05:11)
[2020-08-22] MEDS: Dexamethasone Sodium Phos/PF 10 MG/ML VIAL IVP SCH (07:56)
[2020-08-22] MEDS: Cyanocobalamin (B-12) 1,000 MCG TABLET PO SCH (07:57)
[2020-08-22] MEDS: DilTIAZem CD (24hr) 180 MG CAP.ER.24H PO SCH (07:58)
[2020-08-22] MEDS: Aspirin Enteric Coated 81 MG Tablet PO SCH (07:58)
[2020-08-22] MEDS: Triamcinolone Acet 0.1% CRM 15 GM TUBE TP SCH ×2 (07:58→21:15)
[2020-08-22] MEDS: Nystatin SUSP 5 ML UD.LIQ PO SCH ×4 (07:58→21:05)
[2020-08-22] MEDS: traZODone 50 MG TABLET PO PRN (21:05)
[2020-08-22] MEDS: Melatonin 3 MG TABLET PO PRN (21:05)
[2020-08-23] MEDS: Ipratropium 1 PUFF INHALER IH SCH ×5 (00:26→16:19)
[2020-08-23 02:00] LABS: Hematocrit 37.3 % (37.5-50.1); Hemoglobin 12.4 g/dL (12.9-16.9); Mean Corpuscular HGB Conc 33.2 g/dL (31.6-35.5); Mean Corpuscular Hemoglobin 30.2 pg (28.0-33.3); Mean Platelet Volume 10.2 fL (9.4-12.4); Platelet Count 203 K/mcL (140-400); Red Cell Distribution Width 12.1 % (11.5-14.5); White Blood Count 14.6 K/mcL (4.3-11.1)
[2020-08-23 02:23] LABS: BUN/Creatinine Ratio 50 (6-26); Blood Urea Nitrogen 52 mg/dL (8-23); Calcium 8.3 mg/dL (8.6-10.3); Carbon Dioxide 28 mEq/L (23-29); Chloride 102 mEq/L (98-107); Glucose 155 mg/dL (70-105); Osmolality,Calculated 301 (280-300); Sodium 137 mEq/L (136-145); eGFR For African Americans > 60 (> 60); eGFR For Non-African Americans > 60 (> 60)
[2020-08-23] MEDS: Pantoprazole 40 MG VIAL IVP SCH (05:15)
[2020-08-23] MEDS: *HR* Enoxaparin 40 MG/0.4 ML SYRINGE SQ SCH (05:16)
[2020-08-23 08:27] LABS: Bilirubin,Urine Negative (Negative); Blood,Urine Negative (Negative); Clarity,Urine Clear (Clear); Color,Urine Light-Yellow (Yellow); Glucose,Urine (UA) Normal (Normal); Ketones,Urine Negative (Negative); Leukocyte Esterase,Urine Negative (Negative); Nitrite,Urine Negative (Negative); Protein,Urine Trace mg/dL (Neg-Trace); Specific Gravity,Urine 1.026 (1.010-1.025); Urobilinogen,Urine Normal (Normal)
[2020-08-23] MEDS: Nystatin SUSP 5 ML UD.LIQ PO SCH ×4 (09:27→20:34)
[2020-08-23] MEDS: DilTIAZem CD (24hr) 180 MG CAP.ER.24H PO SCH (09:27)
[2020-08-23] MEDS: Dexamethasone Sodium Phos/PF 10 MG/ML VIAL IVP SCH (09:28)
[2020-08-23] MEDS: Cyanocobalamin (B-12) 1,000 MCG TABLET PO SCH (09:28)
[2020-08-23] MEDS: Aspirin Enteric Coated 81 MG Tablet PO SCH (09:28)
[2020-08-23] MEDS: Triamcinolone Acet 0.1% CRM 15 GM TUBE TP SCH ×2 (09:28→20:34)
[2020-08-23] MEDS: Ipratropium/Albuterol Neb 3 ML IH SCH (20:24)
[2020-08-23] MEDS: Melatonin 3 MG TABLET PO PRN (20:34)
[2020-08-23] MEDS: traZODone 50 MG TABLET PO PRN (20:34)
[2020-08-24] MEDS: Ipratropium/Albuterol Neb 3 ML IH SCH ×7 (00:02→23:45)
[2020-08-24 01:53] LABS: Basophils % 0.1 %; Hematocrit 34.4 % (37.5-50.1); Hemoglobin 11.4 g/dL (12.9-16.9); Immature Granulocytes % 0.6 % (0-4); Lymphocytes # 0.3 K/mcL (0.6-4.6); Lymphocytes % 2.5 %; Mean Corpuscular HGB Conc 33.1 g/dL (31.6-35.5); Mean Corpuscular Hemoglobin 30.2 pg (28.0-33.3); Mean Platelet Volume 10.6 fL (9.4-12.4); Monocytes # 0.1 K/mcL (0.0-1.3); Monocytes % 1.1 %; Neutrophils # 10.9 K/mcL (1.6-8.9); Platelet Count 185 K/mcL (140-400); Red Blood Count 3.78 M/mcL (4.19-5.50); Red Cell Distribution Width 12.1 % (11.5-14.5); Segmented Neutrophils % 95.7 %; White Blood Count 11.4 K/mcL (4.3-11.1)
[2020-08-24 02:07] LABS: Alanine Aminotransferase 34 Units/L (7-52); Albumin 2.6 g/dL (3.5-5.7); Alkaline Phosphatase 59 Units/L (34-104); Aspartate Amino Transferase 17 Units/L (13-39); BUN/Creatinine Ratio 47 (6-26); Bilirubin,Total 0.4 mg/dL (0.3-1.0); Blood Urea Nitrogen 41 mg/dL (8-23); Calcium 8.2 mg/dL (8.6-10.3); Carbon Dioxide 27 mEq/L (23-29); Chloride 104 mEq/L (98-107); Globulin 2.6 g/dL (2.4-3.5); Glucose 151 mg/dL (70-105); Osmolality,Calculated 299 (280-300); Potassium 4.1 mEq/L (3.5-5.1); Sodium 138 mEq/L (136-145); Total Protein 5.2 g/dL (6.4-8.9); eGFR For African Americans > 60 (> 60); eGFR For Non-African Americans > 60 (> 60)
[2020-08-24] MEDS: *HR* Enoxaparin 40 MG/0.4 ML SYRINGE SQ SCH (05:28)
[2020-08-24] MEDS: Dexamethasone Sodium Phos/PF 10 MG/ML VIAL IVP SCH (09:03)
[2020-08-24] MEDS: Cyanocobalamin (B-12) 1,000 MCG TABLET PO SCH (09:04)
[2020-08-24] MEDS: Nystatin SUSP 5 ML UD.LIQ PO SCH ×4 (09:04→21:41)
[2020-08-24] MEDS: DilTIAZem CD (24hr) 180 MG CAP.ER.24H PO SCH (09:04)
[2020-08-24] MEDS: Aspirin Enteric Coated 81 MG Tablet PO SCH (09:04)
[2020-08-24] MEDS: Triamcinolone Acet 0.1% CRM 15 GM TUBE TP SCH ×2 (09:04→21:40)
[2020-08-24 09:15] LABS: Fibrinogen 603 mg/dL (169-393)
[2020-08-24 09:18] LABS: D-Dimer 6162 ng/mLFEU (0-500)
[2020-08-24] MEDS ORDERED: Isovue-370 500 ML BOTTLE IVP ONE (10:23)
[2020-08-24] MEDS ORDERED: Furosemide 40 MG/4 ML VIAL IVP ONE (11:58)
[2020-08-24] MEDS ORDERED: Vancomycin (wt based) 1,000 MG VIAL IVPB SCH (12:00)
[2020-08-24] MEDS: Cefepime HCl 2,000 MG in Water for inj. (sterile) 20 ML IVP SCH ×2 (12:59→21:41)
[2020-08-24] MEDS: Vancomycin 1,250 MG/262.5 ML IV.SOLN IVPB SCH (13:44)
[2020-08-24] MEDS: traZODone 50 MG TABLET PO PRN (21:41)
[2020-08-24] MEDS: Melatonin 3 MG TABLET PO PRN (21:41)
[2020-08-25 01:26] LABS: Hematocrit 34.8 % (37.5-50.1); Hemoglobin 11.9 g/dL (12.9-16.9); Immature Granulocytes % 0.6 % (0-4); Lymphocytes # 0.3 K/mcL (0.6-4.6); Lymphocytes % 2.2 %; Mean Corpuscular HGB Conc 34.2 g/dL (31.6-35.5); Mean Corpuscular Hemoglobin 31.3 pg (28.0-33.3); Mean Corpuscular Volume 91.6 fL (83.0-100.0); Mean Platelet Volume 11.1 fL (9.4-12.4); Monocytes # 0.2 K/mcL (0.0-1.3); Monocytes % 1.2 %; Platelet Count 205 K/mcL (140-400); Red Cell Distribution Width 12.1 % (11.5-14.5); White Blood Count 13.5 K/mcL (4.3-11.1)
[2020-08-25 01:32] LABS: Alanine Aminotransferase 44 Units/L (7-52); Albumin 2.9 g/dL (3.5-5.7); Alkaline Phosphatase 65 Units/L (34-104); Aspartate Amino Transferase 22 Units/L (13-39); BUN/Creatinine Ratio 44 (6-26); Bilirubin,Total 0.5 mg/dL (0.3-1.0); Blood Urea Nitrogen 41 mg/dL (8-23); Calcium 8.2 mg/dL (8.6-10.3); Carbon Dioxide 24 mEq/L (23-29); Chloride 105 mEq/L (98-107); Glucose 133 mg/dL (70-105); Osmolality,Calculated 298 (280-300); Potassium 4.1 mEq/L (3.5-5.1); Sodium 138 mEq/L (136-145); Total Protein 5.9 g/dL (6.4-8.9); eGFR For African Americans > 60 (> 60); eGFR For Non-African Americans > 60 (> 60)
[2020-08-25] MEDS: Ipratropium/Albuterol Neb 3 ML IH SCH ×6 (04:13→23:48)
[2020-08-25] MEDS: Cefepime HCl 2,000 MG in Water for inj. (sterile) 20 ML IVP SCH ×3 (04:48→19:54)
[2020-08-25] MEDS: *HR* Enoxaparin 40 MG/0.4 ML SYRINGE SQ SCH (04:48)
[2020-08-25] MEDS: DilTIAZem CD (24hr) 180 MG CAP.ER.24H PO SCH (08:35)
[2020-08-25] MEDS: Aspirin Enteric Coated 81 MG Tablet PO SCH (08:35)
[2020-08-25] MEDS: Dexamethasone Sodium Phos/PF 10 MG/ML VIAL IVP SCH (08:35)
[2020-08-25] MEDS: Cyanocobalamin (B-12) 1,000 MCG TABLET PO SCH (08:35)
[2020-08-25] MEDS: Nystatin SUSP 5 ML UD.LIQ PO SCH ×4 (08:35→19:55)
[2020-08-25] MEDS: Triamcinolone Acet 0.1% CRM 15 GM TUBE TP SCH ×2 (08:52→19:55)
[2020-08-25] MEDS ORDERED: Furosemide 40 MG/4 ML VIAL IVP ONE (09:15)
[2020-08-25 09:31] LABS: Magnesium 2.4 mg/dL (1.6-2.6)
[2020-08-25 12:57] LABS: ABG Base Excess 2 mEq/L (-2 to 3); ABG HCO3 24 mEq/L (21-27); ABG Oxygen Saturation 91 % (95-98); ABG PCO2 30 mmHg (35-45); ABG PH 7.52 pH Units (7.32-7.45); ABG PO2 53 mmHg (85-104); ABG TCO2 25 mEq/L (20-26)
[2020-08-25] MEDS: Vancomycin 1,250 MG/262.5 ML IV.SOLN IVPB SCH (13:05)
[2020-08-25] MEDS: QUEtiapine Fumarate 25 MG TABLET PO SCH (21:44)
[2020-08-25] MEDS: Melatonin 3 MG TABLET PO PRN (21:44)
[2020-08-26 01:23] LABS: Basophils % 0.1 %; Hematocrit 33.5 % (37.5-50.1); Hemoglobin 11.3 g/dL (12.9-16.9); Immature Granulocytes % 0.5 % (0-4); Lymphocytes # 0.3 K/mcL (0.6-4.6); Mean Corpuscular HGB Conc 33.7 g/dL (31.6-35.5); Mean Corpuscular Hemoglobin 31.1 pg (28.0-33.3); Mean Corpuscular Volume 92.3 fL (83.0-100.0); Mean Platelet Volume 10.7 fL (9.4-12.4); Monocytes # 0.1 K/mcL (0.0-1.3); Monocytes % 1.1 %; Neutrophils # 10.9 K/mcL (1.6-8.9); Platelet Count 194 K/mcL (140-400); Red Blood Count 3.63 M/mcL (4.19-5.50); Segmented Neutrophils % 95.3 %; White Blood Count 11.4 K/mcL (4.3-11.1)
[2020-08-26 01:42] LABS: Alanine Aminotransferase 46 Units/L (7-52); Albumin 2.7 g/dL (3.5-5.7); Albumin/Globulin Ratio 0.9 (1.1-2.2); Alkaline Phosphatase 65 Units/L (34-104); Aspartate Amino Transferase 20 Units/L (13-39); BUN/Creatinine Ratio 52 (6-26); Bilirubin,Total 0.4 mg/dL (0.3-1.0); Blood Urea Nitrogen 46 mg/dL (8-23); Calcium 8.4 mg/dL (8.6-10.3); Carbon Dioxide 24 mEq/L (23-29); Chloride 106 mEq/L (98-107); Globulin 2.9 g/dL (2.4-3.5); Glucose 149 mg/dL (70-105); Osmolality,Calculated 303 (280-300); Potassium 3.9 mEq/L (3.5-5.1); Sodium 139 mEq/L (136-145); Total Protein 5.6 g/dL (6.4-8.9); eGFR For African Americans > 60 (> 60); eGFR For Non-African Americans > 60 (> 60)
[2020-08-26] MEDS: Ipratropium/Albuterol Neb 3 ML IH SCH ×5 (04:13→20:09)
[2020-08-26] MEDS: Cefepime HCl 2,000 MG in Water for inj. (sterile) 20 ML IVP SCH ×3 (05:41→20:34)
[2020-08-26] MEDS: *HR* Enoxaparin 40 MG/0.4 ML SYRINGE SQ SCH (05:42)
[2020-08-26] MEDS: Nystatin SUSP 5 ML UD.LIQ PO SCH ×5 (07:57→20:21)
[2020-08-26] MEDS: DilTIAZem CD (24hr) 180 MG CAP.ER.24H PO SCH (07:57)
[2020-08-26] MEDS: Aspirin Enteric Coated 81 MG Tablet PO SCH (07:57)
[2020-08-26] MEDS: Triamcinolone Acet 0.1% CRM 15 GM TUBE TP SCH ×2 (07:58→20:22)
[2020-08-26] MEDS: Cyanocobalamin (B-12) 1,000 MCG TABLET PO SCH (07:58)
[2020-08-26] MEDS: Dexamethasone Sodium Phos/PF 10 MG/ML VIAL IVP SCH (07:58)
[2020-08-26] MEDS: Furosemide 40 MG/4 ML VIAL IVP SCH (10:26)
[2020-08-26] MEDS: Vancomycin 1,250 MG/262.5 ML IV.SOLN IVPB SCH (12:46)
[2020-08-26] MEDS ORDERED: Dexmedetomidine HCl 400 MCG/100 ML MLS IVC SCH (13:00)
[2020-08-26] MEDS ORDERED: Dexmedetomidine HCl 400 MCG/100 ML MLS IVC ONE (13:00)
[2020-08-26] MEDS ORDERED: Furosemide 40 MG/4 ML VIAL IVP ONE (14:29)
[2020-08-26 15:22] LABS: Serine Protease-3 Antibody 0 AU/mL (0-19)
[2020-08-26] MEDS ORDERED: Haloperidol Oral Conc 10 MG/5 ML UDC PO PRN ×2 (16:28→16:30)
[2020-08-26] MEDS ORDERED: Haloperidol Lactate 5 MG/ML VIAL IVP ONE ×2 (18:24→18:45)
[2020-08-26] MEDS: Morphine Sulfate 2 MG/ML SYRINGE IVP PRN ×5 (19:14→23:37)
[2020-08-26] MEDS ORDERED: Haloperidol Oral Conc 10 MG/5 ML UDC PO SCH (21:00)
[2020-08-26] MEDS ORDERED: Melatonin 3 MG TABLET PO SCH (21:00)
[2020-08-26] MEDS: QUEtiapine Fumarate 25 MG TABLET PO SCH (21:04)
[2020-08-27] MEDS: Ipratropium/Albuterol Neb 3 ML IH SCH ×6 (00:05→20:13)
[2020-08-27 00:24] VITALS: BP 108/66
[2020-08-27] MEDS: Morphine Sulfate 2 MG/ML SYRINGE IVP PRN ×14 (02:05→19:28)
[2020-08-27] MEDS: Cefepime HCl 2,000 MG in Water for inj. (sterile) 20 ML IVP SCH (04:48)
[2020-08-27] MEDS: *HR* Enoxaparin 40 MG/0.4 ML SYRINGE SQ SCH (04:48)
[2020-08-27] MEDS: DilTIAZem CD (24hr) 180 MG CAP.ER.24H PO SCH (08:05)
[2020-08-27] MEDS: Dexamethasone Sodium Phos/PF 10 MG/ML VIAL IVP SCH (08:05)
[2020-08-27] MEDS: Aspirin Enteric Coated 81 MG Tablet PO SCH (08:05)
[2020-08-27] MEDS: Cyanocobalamin (B-12) 1,000 MCG TABLET PO SCH (08:06)
[2020-08-27] MEDS: Furosemide 40 MG/4 ML VIAL IVP SCH (08:11)
[2020-08-27] MEDS: Triamcinolone Acet 0.1% CRM 15 GM TUBE TP SCH (11:01)
[2020-08-27] MEDS: Nystatin SUSP 5 ML UD.LIQ PO SCH ×3 (11:01→16:49)
[2020-08-27] MEDS ORDERED: FentaNYL (PF) 1,000 MCG/100 ML IV.SOLN IVC SCH (11:30)
[2020-08-27 14:44] LABS: ANA IgG by ELISA NONE DETECTED (None Detected)
== END 2020-08-27 20:07 | disposition expired | DRG 871 ==
LOC: 2NENU 10:34 → EMEROOARM 10:34 → 2NENU 14:03 → SUATTDRO 08-11 11:31 → 2NNU 08-16 10:26 → 2ANU 08-26 18:40
PROVIDERS: ADMIT General Practice; ATTEND Family Medicine